=== PATIENT | female | born 1960 | race Caucasian/White ===

== ENCOUNTER 2023-07-30 06:23 | Day surgery (SDC) | payer MEDICARE, OTHER, SELFPAY ==
[2023-07-25 07:57] VITALS: BMI 27.4
[2023-07-30] VITALS (12 sets, daily range): BP systolic 104–133; BP diastolic 50–75; BMI 27.4
[2023-07-30] MEDS: HEPARIN 5000 UNITS SC (08:34)
[2023-07-30] MEDS: NORMOSOL-R 1000 IV (08:34)
[2023-07-30] MEDS: Pyridium 200 MG PO (08:35)
== END 2023-07-30 15:00 | disposition home or self-care (01) ==
LOC: SDS 06:23
PROVIDERS: ATTENDING PHYSICIAN Obstetrics & Gynecology
DX: N81.2 Incomplete uterovaginal prolapse (principal); D25.9 Leiomyoma of uterus, unspecified; N95.2 Postmenopausal atrophic vaginitis; N39.3 Stress incontinence (female) (male); N32.81 Overactive bladder
CPT/HCPCS: 57425; 58542; 57250; 88305; 86900; 86901; C1763

== ENCOUNTER → 2023-10-16 10:01 | Outpatient (REF) | payer MEDICARE, OTHER, SELFPAY | LOC: HWRAD 10:01 | PROVIDERS: ATTENDING PHYSICIAN Nurse Practitioner | DX: Z12.31 Encounter for screening mammogram for malignant neoplasm of breast (principal); M81.0 Age-related osteoporosis without current pathological fracture | CPT/HCPCS: 77063; 77067; 77080 ==

== ENCOUNTER 2024-12-02 06:24 | Day surgery (SDC) | payer MEDICARE, OTHER, SELFPAY | END 2024-12-02 12:09 | disposition home or self-care (01) | LOC: GI 06:24 | PROVIDERS: ATTENDING PHYSICIAN Internal Medicine Gastroenterology | DX: R12 Heartburn (principal); R13.10 Dysphagia, unspecified; K31.7 Polyp of stomach and duodenum; K44.9 Diaphragmatic hernia without obstruction or gangrene; K22.2 Esophageal obstruction; K21.00 Gastro-esophageal reflux disease with esophagitis, without bleeding; K31.89 Other diseases of stomach and duodenum | CPT/HCPCS: 43239; 88305; 88342 ==

== ENCOUNTER → 2025-01-13 07:36 | Outpatient (REF) | payer MEDICARE, OTHER, SELFPAY | LOC: HWWDC 07:36 | DX: Z12.31 Encounter for screening mammogram for malignant neoplasm of breast (principal) | CPT/HCPCS: 77063; 77067 ==